=== PATIENT | male | born 1975 | race Hispanic/Latino ===

== ENCOUNTER 2017-04-02 18:31 | Emergency (ER) | payer MEDICAID ==
[2017-04-02 18:37] VITALS: TEMP 97.5
--- NOTE | 2017-04-02 19:40 | C.PDOC ---
History Of Present Illness 41 y/o male presents to ED with complaints of left rib pain. Patient states he fell from ladder and left rib hit table counter yesterday. Patient reports pain to area when breathing and denies taking pain medication, cough, chest pain or any other complaints at this time. Time Seen by Provider: 04/02/17 19:15 Chief Complaint (Nursing): Rib Injury History Per: Patient History/Exam Limitations: no limitations Onset/Duration Of Symptoms: Days Current Symptoms Are (Timing): Still Present Past Medical History Reviewed: Historical Data, Nursing Documentation, Vital Signs Vital Signs: Last Vital Signs Temp 97.5 F L 04/02/17 18:36 Pulse 64 04/02/17 18:36 Resp 18 04/02/17 18:36 BP 120/71 04/02/17 18:36 Pulse Ox 100 04/02/17 19:55 - Medical History PMH: HIV Surgical History: No Surg Hx Family History: States: No Known Family Hx - Social History Hx Alcohol Use: No Hx Substance Use: No - Immunization History Hx Tetanus Toxoid Vaccination: No Hx Influenza Vaccination: No Hx Pneumococcal Vaccination: No Review Of Systems Constitutional: Negative for: Fever, Chills Cardiovascular: Negative for: Chest Pain Respiratory: Negative for: Shortness of Breath Gastrointestinal: Negative for: Nausea, Vomiting Musculoskeletal: Positive for: Other (Rib pain) Skin: Negative for: Rash Neurological: Negative for: Weakness, Numbness Physical Exam - Physical Exam Appears: Non-toxic, No Acute Distress Skin: Warm, Dry, No Rash Head: Atraumatic, Normacephalic Eye(s): bilateral: Normal Inspection Oral Mucosa: Moist Neck: Normal ROM, Supple Chest: Symmetrical, Tenderness (T4-T5 medial anterior intercostal area), No Ecchymosis Cardiovascular: Rhythm Regular Respiratory: Normal Breath Sounds, No Accessory Muscle Use, No Rales, No Rhonchi , No Wheezing Extremity: Capillary Refill (<2 seconds), No Deformity Neurological/Psych: Oriented x3, Normal Motor, Normal Sensation ED Course And Treatment O2 Sat by Pulse Oximetry: 100 (RA) Pulse Ox Interpretation: Normal - Radiology CXR: Interpreted by Me, Viewed By Me CXR Interpretation: Yes: No Acute Disease. No: Fracture, Pnemothorax - Other Rad Lt Rib XR X-Ray: Interpreted by Me, Viewed By Me Interpretation: No fx Progress Note: Xray was negative. Patient remains stable, in no distress, return precautions discussed. 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 - Scribe Statement The provider has reviewed the documentation as recorded by the Yash Hayden All medical record entries made by the Corinnaibrd were at my direction and personally dictated by me. I have reviewed the chart and agree that the record accurately reflects my personal performance of the history, physical exam, medical decision making, and the department course for this patient. I have also personally directed, reviewed, and agree with the discharge instructions and disposition.
[2017-04-02 20:14] VITALS: BP 119/69; PULSE 72; RESP 17; O2SAT 98
--- NOTE | 2017-04-03 09:58 | RAD ---
PROCEDURE: Radiographs of the Chest and Left Ribs. HISTORY: Fall , left rib pain COMPARISON: None available. TECHNIQUE: Frontal radiograph of the chest and multiple oblique radiographs of the left ribs were obtained. FINDINGS: LEFT RIBS: No fracture or focal lesion visualized. LUNGS: Clear. PLEURA: No pneumothorax or pleural fluid. CARDIOVASCULAR: Normal sized heart. No pulmonary vascular congestion. OTHER FINDINGS: None. IMPRESSION: Unremarkable radiographs of the chest and left ribs. No left rib fracture.
== END 2017-04-02 20:15 | disposition home or self-care (01) ==
LOC: C.ER 18:31
DX: S20.212A Contusion of left front wall of thorax, initial encounter (principal); W11.XXXA Fall on and from ladder, initial encounter

== ENCOUNTER 2017-04-05 04:39 | Emergency (ER) | payer MEDICAID ==
[2017-04-05 05:00] VITALS: O2SAT 97
--- NOTE | 2017-04-05 05:09 | C.PDOC ---
History Of Present Illness 41 year old male presents to ED with complaints of left rib pain and " difficulty breathing". Patient states he fell from ladder and chest wall on table counter 3 days ago. He was seen in the ED and xray was normal. Patient states he continues to have pain to the area worse with movement, or when taking deep breaths. He has not taken any pain medication nor filled his prescription. Denies any new injury to area. Denies fever, cough, sputum. Time Seen by Provider: 04/05/17 04:56 Chief Complaint (Nursing): Shortness Of Breath History Per: Patient History/Exam Limitations: no limitations Onset/Duration Of Symptoms: Days Current Symptoms Are (Timing): Still Present Recent travel outside of the [place]: No Additional History Per: Patient Past Medical History Reviewed: Historical Data, Nursing Documentation, Vital Signs Vital Signs: Last Vital Signs Temp 97.8 F 04/05/17 05:29 Pulse 65 04/05/17 05:29 Resp 18 04/05/17 05:29 BP 118/71 04/05/17 05:29 Pulse Ox 97 04/05/17 05:31 - Medical History PMH: HIV Surgical History: No Surg Hx Family History: States: No Known Family Hx - Social History Hx Alcohol Use: No Hx Substance Use: No - Immunization History Hx Tetanus Toxoid Vaccination: No Hx Influenza Vaccination: No Hx Pneumococcal Vaccination: No Review Of Systems Except As Marked, All Systems Reviewed And Found Negative. Constitutional: Negative for: Fever, Chills Cardiovascular: Positive for: Other. Negative for: Chest Pain Respiratory: Positive for: Pleuritic Pain. Negative for: Cough Gastrointestinal: Negative for: Nausea, Vomiting, Abdominal Pain Musculoskeletal: Positive for: Other (left rib pain) Skin: Negative for: Rash, Bruising Neurological: Negative for: Dizziness Physical Exam - Physical Exam Appears: Non-toxic, No Acute Distress Skin: Warm, Dry Head: Atraumatic, Normacephalic Eye(s): bilateral: Normal Inspection Oral Mucosa: Moist Neck: Supple Chest: Symmetrical, Tenderness (left anterior rib region 5-6), No Ecchymosis, No Subcutaneous Emphysema Cardiovascular: Rhythm Regular Respiratory: No Rales, No Rhonchi, No Wheezing Gastrointestinal/Abdominal: Soft, No Tenderness, No Guarding, No Rebound Neurological/Psych: Oriented x3, Normal Speech Gait: Steady ED Course And Treatment O2 Sat by Pulse Oximetry: 97 (RA) Medical Decision Making Medical Decision Making: Patient with left rib pain s.p fall 3 days ago. Patient was seen on 04/02 and had xray of ribs and chest showing no acute fracture. Patient continues to have pain and has not taken any analgesics. Motrin PO ordered. Patient wants another xray or CT scan to make sure ribs are ok. Chest wall is tender, there is no ecchymosis, no crepitus or bony abnormality. CXR ordered and reviewed showing no rib fracture or pneumothorax. Patient advise to fill his Rx and take NSAID for pain and inflammation from bruised rib. Patient is stable for discharge. 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 - Scribe Statement The provider has reviewed the documentation as recorded by the Yash Chin All medical record entries made by the Yash were at my direction and personally dictated by me. I have reviewed the chart and agree that the record accurately reflects my personal performance of the history, physical exam, medical decision making, and the department course for this patient. I have also personally directed, reviewed, and agree with the discharge instructions and disposition.
[2017-04-05 05:37] VITALS: BP 118/71; PULSE 65; RESP 18; TEMP 97.8
--- NOTE | 2017-04-05 10:03 | RAD ---
HISTORY: left rib pain COMPARISON: Comparison made with prior chest radiograph left rib series dated 04/02/2017. TECHNIQUE: Chest PA and lateral FINDINGS: LUNGS: No active pulmonary disease. PLEURA: No significant pleural effusion identified. No pneumothorax apparent. CARDIOVASCULAR: Normal. OSSEOUS STRUCTURES: No significant abnormalities. VISUALIZED UPPER ABDOMEN: Normal. OTHER FINDINGS: None. IMPRESSION: No active disease.
== END 2017-04-05 05:32 | disposition home or self-care (01) ==
LOC: C.ER 04:39
DX: S20.212A Contusion of left front wall of thorax, initial encounter (principal); W11.XXXA Fall on and from ladder, initial encounter; Y92.89 Other specified places as the place of occurrence of the external cause